=== PATIENT | male | born 1980 | race Caucasian/White ===

== ENCOUNTER → 2020-11-02 | Emergency (ER) | payer MEDICAID ==
[~2020-11-02] VITALS: Ht 175.3 cm; Wt 127.3 kg
[~2020-11-02] MED LIST: FENO160T30 PO; GABA300C PO; LISI10TA27 PO; ONDA4TAB59 PO; ONDA4TAB6 PO; PANT40TA54 PO; PIOG30TA72 PO; SUCR1ORA2 PO; aspirin 81mg tab.chew PO ONE
[2020-11-02 15:08] LABS: BASOPHILS # (AUTO) 0.1 X10'3 (0-0.2); BASOPHILS % (AUTO) 0.6 % (0-1); EOSINOPHILS # (AUTO) 0.3 X10'3 (0-0.9); EOSINOPHILS % (AUTO) 3.7 % (0-6); HEMATOCRIT 47.3 % (42.0-52.0); HEMOGLOBIN 16.3 g/dl (14.0-17.9); LYMPHOCYTES # (AUTO) 1.8 X10'3 (1.1-4.8); LYMPHOCYTES % (AUTO) 20.6 % (21-51); MEAN CORPUSCULAR HEMOGLOBIN 33.2 PG (27.0-31.0); MEAN CORPUSCULAR HGB CONC 34.4 g/dL (33.0-36.5); MEAN CORPUSCULAR VOLUME 96.7 FL (78-98); MONOCYTES # (AUTO) 0.7 X10'3 (0-0.9); MONOCYTES % (AUTO) 7.3 % (2-12); NEUTROPHILS # (AUTO) 6.1 X10'3 (1.8-7.7); NEUTROPHILS % (AUTO) 67.8 % (42-75); PLATELET COUNT 276 X10'3 (140-440); RED BLOOD COUNT 4.89 X10'6 (4.70-6.10); WHITE BLOOD COUNT 8.9 X10'3 (4.5-11.0)
[2020-11-02 15:19] LABS: ALANINE AMINOTRANSFERASE 54 U/L (12-78); ALKALINE PHOSPHATASE 52 IU/L (46-116); ANION GAP 9 (8-16); ASPARTATE AMINO TRANSFERASE 33 U/L (10-37); BILIRUBIN,TOTAL 0.6 MG/DL (0.1-1.0); BLOOD UREA NITROGEN 16 MG/DL (7-18); CALCIUM 9.3 MG/DL (8.5-10.1); CHLORIDE 101 MMOL/L (99-107); GLUCOSE 118 MG/DL (70-104); SODIUM 139 MMOL/L (135-145); eGFR 82 ML/MIN
[2020-11-02 15:21] LABS: PARTIAL THROMBOPLASTIN TIME 30 SECONDS (22-32)
[2020-11-02 15:27] LABS: MAGNESIUM 1.6 MG/DL (1.5-2.4)
--- NOTE | 2020-11-02 16:51 | NUR ---
Dr. Woody at bedside.
[2020-11-02 17:05] VITALS: BP 161/78
== END | disposition home or self-care (01) ==
LOC: ER 13:30
DX: M79.602 Pain in left arm (principal); F17.200 Nicotine dependence, unspecified, uncomplicated; G56.22 Lesion of ulnar nerve, left upper limb; E11.9 Type 2 diabetes mellitus without complications; I10 Essential (primary) hypertension; E78.00 Pure hypercholesterolemia, unspecified; F41.9 Anxiety disorder, unspecified; G47.30 Sleep apnea, unspecified; Z72.89 Other problems related to lifestyle; Z90.89 Acquired absence of other organs; Z79.899 Other long term (current) drug therapy
CPT/HCPCS: 36415; 71045; 80053; 83735; 83880; 84484; 85025; 85610; 85730; 93005; 99285

== ENCOUNTER 2021-11-19 13:06 | Emergency (ER) | payer MEDICAID ==
[~2021-11-19] VITALS: Ht 175.3 cm; Wt 111.4 kg
[~2021-11-19 13:06] MED LIST changes: -ONDA4TAB59 PO; -ONDA4TAB6 PO; -SUCR1ORA2 PO; -aspirin 81mg tab.chew PO ONE
[2021-11-19] MEDS ORDERED: LORazepam 1 MG tablet PO ONE (14:45)
[2021-11-19] MEDS ORDERED: lisinopril 10 MG tablet PO ONE (14:45)
[2021-11-19 15:07] LABS: BASOPHILS % (AUTO) 0.5 % (0-1); EOSINOPHILS % (AUTO) 0.5 % (0-6); HEMATOCRIT 45.4 % (42.0-52.0); HEMOGLOBIN 15.7 g/dl (14.0-17.9); LYMPHOCYTES % (AUTO) 11.2 % (21-51); MEAN CORPUSCULAR HEMOGLOBIN 32.6 PG (27.0-31.0); MEAN CORPUSCULAR HGB CONC 34.7 g/dL (33.0-36.5); MEAN CORPUSCULAR VOLUME 94.1 FL (78-98); MEAN PLATELET VOLUME 6.6 FL (7.4-10.4); MONOCYTES # (AUTO) 0.7 X10'3 (0-0.9); MONOCYTES % (AUTO) 7.6 % (2-12); NEUTROPHILS # (AUTO) 7.3 X10'3 (1.8-7.7); NEUTROPHILS % (AUTO) 80.2 % (42-75); PLATELET COUNT 348 X10'3 (140-440); RED BLOOD COUNT 4.82 X10'6 (4.70-6.10); RED CELL DISTRIBUTION WIDTH 13.2 % (11.5-14.5)
[2021-11-19 15:26] LABS: ALANINE AMINOTRANSFERASE 44 U/L (12-78); ALBUMIN 4.1 G/DL (3.4-5.0); ALBUMIN/GLOBULIN RATIO 1.1 (1.1-1.5); ALKALINE PHOSPHATASE 56 IU/L (46-116); ANION GAP 12 (8-16); ASPARTATE AMINO TRANSFERASE 27 U/L (10-37); BILIRUBIN,TOTAL 0.8 MG/DL (0.1-1.0); BLOOD UREA NITROGEN 11 MG/DL (7-18); BUN/CREATININE RATIO 13.9 (5.4-32.0); CALCIUM 8.6 MG/DL (8.5-10.1); CHLORIDE 97 MMOL/L (99-107); CREATININE 0.79 MG/DL (0.60-1.10); GLUCOSE 145 MG/DL (70-104); POTASSIUM 3.6 MMOL/L (3.5-5.1); SODIUM 134 MMOL/L (135-145); TOTAL PROTEIN 7.8 G/DL (6.4-8.2); eGFR > 90 ML/MIN
[2021-11-19] MEDS ORDERED: normal saline 1000ML IV soln IVB ONE (17:00)
[2021-11-19 19:23] VITALS: BP 134/82
== END 2021-11-19 19:20 | disposition home or self-care (01) ==
LOC: ER 13:09
DX: F10.920 Alcohol use, unspecified with intoxication, uncomplicated (principal); E86.0 Dehydration; I10 Essential (primary) hypertension; E11.9 Type 2 diabetes mellitus without complications; Z98.890 Other specified postprocedural states
CPT/HCPCS: 36415; 71045; 80053; 83880; 84484; 85025; 93005; 96360; 99285; J7030

== ENCOUNTER 2022-02-18 14:43 | Emergency (ER) | payer MEDICAID ==
[~2022-02-18] VITALS: Ht 175.3 cm; Wt 109.1 kg
[2022-02-18 15:34] LABS: ALANINE AMINOTRANSFERASE 57 U/L (12-78); ALBUMIN/GLOBULIN RATIO 1.1 (1.1-1.5); ALKALINE PHOSPHATASE 48 IU/L (46-116); ANION GAP 15 (8-16); ASPARTATE AMINO TRANSFERASE 43 U/L (10-37); BILIRUBIN,TOTAL 0.5 MG/DL (0.1-1.0); BLOOD UREA NITROGEN 13 MG/DL (7-18); BUN/CREATININE RATIO 17.3 (5.4-32.0); CALCIUM 8.4 MG/DL (8.5-10.1); CHLORIDE 96 MMOL/L (99-107); CREATININE 0.75 MG/DL (0.60-1.10); GLUCOSE 160 MG/DL (70-104); LIPASE 88 U/L (73-393); POTASSIUM 3.4 MMOL/L (3.5-5.1); SODIUM 135 MMOL/L (135-145); TOTAL CARBON DIOXIDE 24.1 MMOL/L (24-32); TOTAL PROTEIN 7.6 G/DL (6.4-8.2); eGFR > 90 ML/MIN
[2022-02-18 15:44] LABS: BASOPHILS % (AUTO) 0.7 % (0-1); EOSINOPHILS # (AUTO) 0.1 X10'3 (0-0.9); EOSINOPHILS % (AUTO) 1.9 % (0-6); HEMATOCRIT 46.1 % (42.0-52.0); HEMOGLOBIN 15.9 g/dl (14.0-17.9); LYMPHOCYTES # (AUTO) 1.3 X10'3 (1.1-4.8); LYMPHOCYTES % (AUTO) 24.1 % (21-51); MEAN CORPUSCULAR HEMOGLOBIN 32.8 PG (27.0-31.0); MEAN CORPUSCULAR HGB CONC 34.4 g/dL (33.0-36.5); MEAN CORPUSCULAR VOLUME 95.2 FL (78-98); MEAN PLATELET VOLUME 6.5 FL (7.4-10.4); MONOCYTES # (AUTO) 0.4 X10'3 (0-0.9); MONOCYTES % (AUTO) 6.7 % (2-12); NEUTROPHILS # (AUTO) 3.7 X10'3 (1.8-7.7); NEUTROPHILS % (AUTO) 66.6 % (42-75); PLATELET COUNT 285 X10'3 (140-440); RED BLOOD COUNT 4.85 X10'6 (4.70-6.10); RED CELL DISTRIBUTION WIDTH 13.3 % (11.5-14.5); WHITE BLOOD COUNT 5.5 X10'3 (4.5-11.0)
[2022-02-18 15:53] LABS: CLARITY,URINE CLEAR (Clear); COLOR,URINE YELLOW (Yellow); GLUCOSE, URINE NEGATIVE (Neg); KETONES,URINE NEGATIVE (Neg); LEUKOCYTE ESTERASE ,URINE NEGATIVE (Neg); NITRITES, URINE NEGATIVE (Neg); OCCULT BLOOD,URINE SMALL (Neg); PH,URINE >=9.0 (4.8-8.0); PROTEIN,URINE 100 mg/dl (Neg); UROBILINOGEN,URINE 0.2 E.U/dL (0.2-1.0)
[2022-02-18 16:01] LABS: UA COLLECTION TYPE CLN CATCH MIDSTREAM
[2022-02-18 16:02] LABS: WBC,URINE 0-4 /HPF (0-4)
[2022-02-18 16:03] LABS: BACTERIA,URINE NONE SEEN /HPF (Neg)
[2022-02-18 16:04] LABS: MUCUS STRANDS NONE SEEN /LPF (Neg); SQUAMOUS EPITHELIAL CELL,UR NONE SEEN /LPF (FEW)
[2022-02-18] MEDS ORDERED: mag hydrox/Alum hydrox/simeth 30ml oral suspension PO ONE (22:15)
[2022-02-18] MEDS ORDERED: ondansetron/PF 4mg/2ml inj IV ONE (22:15)
[2022-02-18] MEDS ORDERED: normal saline 1000ML IV soln IVB ONE (22:15)
[2022-02-18] MEDS ORDERED: sucralfate 1 gm tablet PO ONE (22:15)
[2022-02-18] MEDS ORDERED: LORazepam 2 mg/ml vial IV ONE (22:15)
[2022-02-18] MEDS ORDERED: cloNIDine 0.1 mg tablet PO ONE (22:15)
[2022-02-18] MEDS ORDERED: LIDOcaine Viscous 15ml cup MM ONE (22:15)
[2022-02-19 01:28] VITALS: BP 125/57
[2022-02-19] MEDS ORDERED: GABA-534 PO (02:15)
[2022-02-19] MEDS ORDERED: SUCR1TAB34 PO (02:15)
[2022-02-19] MEDS ORDERED: sucralfate 1 gm tablet PO ONE (02:15)
[2022-02-19] MEDS ORDERED: mag hydrox/Alum hydrox/simeth 30ml oral suspension PO ONE (02:15)
[2022-02-19] MEDS ORDERED: ONDA4TAB12 PO (02:15)
[2022-02-19] MEDS ORDERED: LIDOcaine Viscous 15ml cup MM ONE (02:15)
== END 2022-02-19 02:38 | disposition home or self-care (01) ==
LOC: ER 14:44
DX: K29.20 Alcoholic gastritis without bleeding (principal); F10.239 Alcohol dependence with withdrawal, unspecified; E78.00 Pure hypercholesterolemia, unspecified; I10 Essential (primary) hypertension; E11.9 Type 2 diabetes mellitus without complications; F41.9 Anxiety disorder, unspecified; F17.200 Nicotine dependence, unspecified, uncomplicated; Z79.899 Other long term (current) drug therapy
CPT/HCPCS: 36415; 80053; 81001; 83690; 84484; 85025; 93005; 96361; 96374; 96375; 99285; J2060; J2405; J7030

== ENCOUNTER 2022-03-05 14:39 | Emergency (ER) | payer MEDICAID ==
[~2022-03-05] VITALS: Ht 175.3 cm; Wt 109.1 kg
[~2022-03-05 14:39] MED LIST changes: +GABA-534 PO; +ONDA4TAB12 PO; +SUCR1TAB34 PO
--- NOTE | 2022-03-05 15:03 | NUR ---
Met with patient in regards to alcohol use. Patient came in for alcohol withdrawal. Patient is waiting for [facility] to have a bed available. Spoke with Beto about patient. I will follow up with patient and help assist however I can.
[2022-03-05] MEDS ORDERED: folic acid 1mg/0.2ml inj IV ONE (16:00)
[2022-03-05] MEDS ORDERED: LORazepam 2 mg/ml vial IV ONE (16:00)
[2022-03-05] MEDS ORDERED: normal saline 1000ML IV soln IVB ONE (16:00)
[2022-03-05] MEDS ORDERED: thiamine 100mg/ml 2ml inj. IV ONE (16:00)
[2022-03-05 19:20] LABS: BASOPHILS # (AUTO) 0.1 X10'3 (0-0.2); EOSINOPHILS # (AUTO) 0.2 X10'3 (0-0.9); EOSINOPHILS % (AUTO) 1.9 % (0-6); HEMOGLOBIN 15.8 g/dl (14.0-17.9); LYMPHOCYTES # (AUTO) 1.7 X10'3 (1.1-4.8); MONOCYTES # (AUTO) 0.5 X10'3 (0-0.9)
[2022-03-05 19:22] LABS: BASOPHILS % (AUTO) 0.6 % (0-1); HEMATOCRIT 44.9 % (42.0-52.0); LYMPHOCYTES % (AUTO) 18.2 % (21-51); MEAN CORPUSCULAR HEMOGLOBIN 33.3 PG (27.0-31.0); MEAN CORPUSCULAR HGB CONC 35.3 g/dL (33.0-36.5); MEAN CORPUSCULAR VOLUME 94.5 FL (78-98); MEAN PLATELET VOLUME 6.7 FL (7.4-10.4); MONOCYTES % (AUTO) 5.4 % (2-12); NEUTROPHILS % (AUTO) 73.9 % (42-75); PLATELET COUNT 345 X10'3 (140-440); RED BLOOD COUNT 4.75 X10'6 (4.70-6.10); RED CELL DISTRIBUTION WIDTH 13.6 % (11.5-14.5); WHITE BLOOD COUNT 9.5 X10'3 (4.5-11.0)
[2022-03-05 19:31] LABS: ALANINE AMINOTRANSFERASE 30 U/L (12-78); ALBUMIN 4.1 G/DL (3.4-5.0); ALBUMIN/GLOBULIN RATIO 1.1 (1.1-1.5); ALKALINE PHOSPHATASE 46 IU/L (46-116); ANION GAP 12 (8-16); ASPARTATE AMINO TRANSFERASE 20 U/L (10-37); BILIRUBIN,TOTAL 0.6 MG/DL (0.1-1.0); BLOOD UREA NITROGEN 11 MG/DL (7-18); BUN/CREATININE RATIO 13.3 (5.4-32.0); CALCIUM 9.6 MG/DL (8.5-10.1); CHLORIDE 100 MMOL/L (99-107); CREATININE 0.83 MG/DL (0.60-1.10); ETHANOL < 0.010 GM/DL (0.0-0.010); GLUCOSE 115 MG/DL (70-104); POTASSIUM 3.8 MMOL/L (3.5-5.1); SODIUM 139 MMOL/L (135-145); TOTAL CARBON DIOXIDE 27.4 MMOL/L (24-32); TOTAL PROTEIN 7.9 G/DL (6.4-8.2); eGFR > 90 ML/MIN
--- NOTE | 2022-03-05 20:20 | NUR ---
MIKEY SANTO INFORMED THAT THE PT HAS DRIVEN HERE, AND REFUSED ATIVAN BECAUSE HE IS DRIVING HOME
[2022-03-05] MEDS ORDERED: ONDA4TAB12 PO (20:41)
[2022-03-05] MEDS ORDERED: LORA-269 PO (20:41)
[2022-03-05 21:40] VITALS: BP 152/86
[2022-03-06 00:36] LABS: TOTAL CELLS COUNTED 100
[2022-03-06 00:37] LABS: PLATELET ESTIMATE NORMAL
== END 2022-03-05 21:43 | disposition home or self-care (01) ==
LOC: ER 14:40
DX: F10.239 Alcohol dependence with withdrawal, unspecified (principal); R10.13 Epigastric pain; F41.9 Anxiety disorder, unspecified; R00.2 Palpitations; E78.00 Pure hypercholesterolemia, unspecified; I10 Essential (primary) hypertension; E11.9 Type 2 diabetes mellitus without complications; F17.200 Nicotine dependence, unspecified, uncomplicated; Z72.89 Other problems related to lifestyle; Z90.89 Acquired absence of other organs; Z79.899 Other long term (current) drug therapy; Y90.0 Blood alcohol level of less than 20 mg/100 ml
CPT/HCPCS: 36415; 71045; 80053; 80320; 82948; 85007; 85025; 93005; 96361; 96374; 96375; 99285; J3411; J3490; J7030

== ENCOUNTER 2022-03-09 18:41 | Emergency (ER) | payer MEDICAID ==
[~2022-03-09] VITALS: Ht 175.3 cm; Wt 107.5 kg
[~2022-03-09 18:41] MED LIST changes: +LORA-269 PO
[2022-03-10 06:48] VITALS: BP 174/91
--- NOTE | 2022-03-10 07:15 | NUR ---
Pt seen by Dr. Barriga.
[2022-03-10] MEDS ORDERED: chlordiazePOXIDE 25mg capsule PO ONE (07:20)
[2022-03-10] MEDS ORDERED: CHLO25CA10 PO (07:21)
[2022-03-10] MEDS ORDERED: ONDA4TAB12 PO (07:21)
--- NOTE | 2022-03-10 07:30 | NUR ---
Pt given and understands d/c instructions. Ambulatory with a steady gait.
== END 2022-03-10 07:53 | disposition home or self-care (01) ==
LOC: ER 18:42
DX: F10.129 Alcohol abuse with intoxication, unspecified (principal); E78.00 Pure hypercholesterolemia, unspecified; I10 Essential (primary) hypertension; E11.9 Type 2 diabetes mellitus without complications; F41.9 Anxiety disorder, unspecified; Z90.89 Acquired absence of other organs; Z72.89 Other problems related to lifestyle; Z79.899 Other long term (current) drug therapy; Y90.9 Presence of alcohol in blood, level not specified
CPT/HCPCS: 93005; 99283

== ENCOUNTER 2022-03-15 19:58 | Emergency (ER) | payer MEDICAID ==
[~2022-03-15] VITALS: Ht 175.3 cm; Wt 109.1 kg
[~2022-03-15 19:58] MED LIST changes: +CHLO25CA10 PO
[2022-03-15] MEDS ORDERED: normal saline 1000ML IV soln IVB ONE (21:15)
[2022-03-15] MEDS ORDERED: magnesium 2GM in 50ml NS 50 ML IV ONE (21:15)
[2022-03-15] MEDS ORDERED: LORazepam 2 mg/ml vial IV ONE (21:15)
[2022-03-15 21:46] LABS: BASOPHILS # (AUTO) 0.1 X10'3 (0-0.2); BASOPHILS % (AUTO) 1.8 % (0-1); EOSINOPHILS # (AUTO) 0.2 X10'3 (0-0.9); EOSINOPHILS % (AUTO) 3.7 % (0-6); HEMATOCRIT 44.6 % (42.0-52.0); HEMOGLOBIN 15.5 g/dl (14.0-17.9); LYMPHOCYTES # (AUTO) 1.6 X10'3 (1.1-4.8); LYMPHOCYTES % (AUTO) 33.4 % (21-51); MEAN CORPUSCULAR HEMOGLOBIN 32.5 PG (27.0-31.0); MEAN CORPUSCULAR HGB CONC 34.7 g/dL (33.0-36.5); MEAN CORPUSCULAR VOLUME 93.8 FL (78-98); MEAN PLATELET VOLUME 6.3 FL (7.4-10.4); MONOCYTES # (AUTO) 0.4 X10'3 (0-0.9); MONOCYTES % (AUTO) 8.8 % (2-12); NEUTROPHILS # (AUTO) 2.5 X10'3 (1.8-7.7); NEUTROPHILS % (AUTO) 52.3 % (42-75); PLATELET COUNT 239 X10'3 (140-440); RED BLOOD COUNT 4.75 X10'6 (4.70-6.10); RED CELL DISTRIBUTION WIDTH 13.3 % (11.5-14.5); WHITE BLOOD COUNT 4.8 X10'3 (4.5-11.0)
[2022-03-15 22:02] LABS: ALANINE AMINOTRANSFERASE 43 U/L (12-78); ALBUMIN 3.8 G/DL (3.4-5.0); ALKALINE PHOSPHATASE 54 IU/L (46-116); ANION GAP 9 (8-16); ASPARTATE AMINO TRANSFERASE 37 U/L (10-37); BILIRUBIN,TOTAL 0.3 MG/DL (0.1-1.0); BLOOD UREA NITROGEN 8 MG/DL (7-18); BUN/CREATININE RATIO 10.3 (5.4-32.0); CALCIUM 8.8 MG/DL (8.5-10.1); CHLORIDE 103 MMOL/L (99-107); CREATININE 0.78 MG/DL (0.60-1.10); GLUCOSE 138 MG/DL (70-104); POTASSIUM 3.9 MMOL/L (3.5-5.1); SODIUM 143 MMOL/L (135-145); TOTAL CARBON DIOXIDE 30.6 MMOL/L (24-32); TOTAL PROTEIN 7.6 G/DL (6.4-8.2); eGFR > 90 ML/MIN
[2022-03-15] MEDS ORDERED: CHLO25CA10 PO (22:41)
[2022-03-15 22:56] VITALS: BP 138/86
== END 2022-03-16 00:26 | disposition home or self-care (01) ==
LOC: ER 19:58
DX: F10.10 Alcohol abuse, uncomplicated (principal); I10 Essential (primary) hypertension; E11.9 Type 2 diabetes mellitus without complications; F41.9 Anxiety disorder, unspecified; E78.00 Pure hypercholesterolemia, unspecified; F17.210 Nicotine dependence, cigarettes, uncomplicated; Z79.899 Other long term (current) drug therapy; Z90.49 Acquired absence of other specified parts of digestive tract; Y90.9 Presence of alcohol in blood, level not specified
CPT/HCPCS: 36415; 80053; 85025; 96365; 96375; 99284; J2060; J3475; J7030

== ENCOUNTER 2022-05-03 01:46 | Emergency (ER) | payer MEDICAID ==
[~2022-05-03] VITALS: Ht 175.3 cm; Wt 111.4 kg
[2022-05-03] MEDS ORDERED: normal saline 1000ML IV soln IVB ONE ×2 (02:05→03:15)
[2022-05-03] MEDS ORDERED: thiamine 100mg/ml 2ml inj. IV ONE (02:05)
[2022-05-03 02:27] LABS: BASOPHILS % (AUTO) 0.4 % (0-1); EOSINOPHILS # (AUTO) 0.1 X10'3 (0-0.9); EOSINOPHILS % (AUTO) 0.7 % (0-6); HEMATOCRIT 43.9 % (42.0-52.0); HEMOGLOBIN 15.2 g/dl (14.0-17.9); LYMPHOCYTES # (AUTO) 2.5 X10'3 (1.1-4.8); LYMPHOCYTES % (AUTO) 29.5 % (21-51); MEAN CORPUSCULAR HEMOGLOBIN 32.4 PG (27.0-31.0); MEAN CORPUSCULAR HGB CONC 34.6 g/dL (33.0-36.5); MEAN CORPUSCULAR VOLUME 93.8 FL (78-98); MEAN PLATELET VOLUME 6.9 FL (7.4-10.4); MONOCYTES # (AUTO) 0.5 X10'3 (0-0.9); MONOCYTES % (AUTO) 6.3 % (2-12); NEUTROPHILS # (AUTO) 5.3 X10'3 (1.8-7.7); NEUTROPHILS % (AUTO) 63.1 % (42-75); PLATELET COUNT 382 X10'3 (140-440); RED BLOOD COUNT 4.68 X10'6 (4.70-6.10); RED CELL DISTRIBUTION WIDTH 13.1 % (11.5-14.5); WHITE BLOOD COUNT 8.5 X10'3 (4.5-11.0)
[2022-05-03 03:05] LABS: ALANINE AMINOTRANSFERASE 36 U/L (12-78); ALBUMIN 3.8 G/DL (3.4-5.0); ALBUMIN/GLOBULIN RATIO 1.2 (1.1-1.5); ALKALINE PHOSPHATASE 48 IU/L (46-116); ANION GAP 22 (8-16); ASPARTATE AMINO TRANSFERASE 30 U/L (10-37); BILIRUBIN,TOTAL 0.8 MG/DL (0.1-1.0); BLOOD UREA NITROGEN 13 MG/DL (7-18); BUN/CREATININE RATIO 16.9 (5.4-32.0); CALCIUM 8.4 MG/DL (8.5-10.1); CHLORIDE 96 MMOL/L (99-107); CREATININE 0.77 MG/DL (0.60-1.10); ETHANOL 0.204 GM/DL (0.0-0.010); GLUCOSE 143 MG/DL (70-104); LIPASE 65 U/L (73-393); POTASSIUM 3.6 MMOL/L (3.5-5.1); SODIUM 137 MMOL/L (135-145); TOTAL CARBON DIOXIDE 18.9 MMOL/L (24-32); eGFR > 90 ML/MIN
[2022-05-03] MEDS ORDERED: famotidine/PF 10 mg/ml inj IV ONE (03:15)
[2022-05-03] MEDS ORDERED: dextrose 5%-1/2 normal saline 1,000 ML IV ONE (03:20)
[2022-05-03] MEDS ORDERED: iohexol 300mg/ml 100ml inj. ONE (03:26)
[2022-05-03 04:09] LABS: URINE AMPHETAMINE SCREEN NEGATIVE (Neg); URINE BARBITUATE SCREEN NEGATIVE (Neg); URINE BENZODIAZEPINES SCREEN NEGATIVE (Neg); URINE CANNABINOID SCREEN NEGATIVE (Neg); URINE COCAINE SCREEN NEGATIVE (Neg); URINE METHADONE SCREEN NEGATIVE (Neg); URINE OPIATE SCREEN NEGATIVE (Neg); URINE PHENCYCLIDINE SCREEN NEGATIVE (Neg)
[2022-05-03 05:12] LABS: ANION GAP 17 (8-16); BLOOD UREA NITROGEN 11 MG/DL (7-18); BUN/CREATININE RATIO 19.3 (5.4-32.0); CALCIUM 6.6 MG/DL (8.5-10.1); CHLORIDE 102 MMOL/L (99-107); CREATININE 0.57 MG/DL (0.60-1.10); GLUCOSE 114 MG/DL (70-104); POTASSIUM 3.3 MMOL/L (3.5-5.1); SODIUM 138 MMOL/L (135-145); TOTAL CARBON DIOXIDE 19.5 MMOL/L (24-32); eGFR > 90 ML/MIN
[2022-05-03] MEDS ORDERED: CALCIUM GLUC 1gm/50ml NACL,iso 50 ML IV ONE (05:35)
[2022-05-03] MEDS ORDERED: ondansetron 4mg rapidly disintigrating tab PO ONE (06:45)
[2022-05-03] MEDS ORDERED: pantoprazole 40mg IV 80 MG in normal saline 100ml IV soln 100 ML IV ONE (07:55)
[2022-05-03] MEDS ORDERED: LORazepam 2 mg/ml vial IV ONE ×2 (07:55→16:45)
[2022-05-03] MEDS ORDERED: mag hydrox/Alum hydrox/simeth 30ml oral suspension PO ONE (07:55)
[2022-05-03] MEDS: pantoprazole 40MG/NS 100ML BAG 100 ML IV SCH ×2 (08:18→08:39)
[2022-05-03 10:14] LABS: ALBUMIN 3.4 G/DL (3.4-5.0); ANION GAP 17 (8-16); BLOOD UREA NITROGEN 9 MG/DL (7-18); BUN/CREATININE RATIO 14.5 (5.4-32.0); CALCIUM 8.1 MG/DL (8.5-10.1); CHLORIDE 99 MMOL/L (99-107); CREATININE 0.62 MG/DL (0.60-1.10); ETHANOL 0.046 GM/DL (0.0-0.010); GLUCOSE 131 MG/DL (70-104); POTASSIUM 3.9 MMOL/L (3.5-5.1); SODIUM 137 MMOL/L (135-145); TOTAL CARBON DIOXIDE 20.7 MMOL/L (24-32); eGFR > 90 ML/MIN
[2022-05-03] MEDS ORDERED: sucralfate 1 gm tablet PO ONE (13:45)
[2022-05-03] MEDS ORDERED: morphine 2 MG/ML inj. syringe IV ONE (13:45)
[2022-05-03 14:14] LABS: ALBUMIN 3.7 G/DL (3.4-5.0); ANION GAP 12 (8-16); BLOOD UREA NITROGEN 9 MG/DL (7-18); BUN/CREATININE RATIO 12.2 (5.4-32.0); CALCIUM 8.3 MG/DL (8.5-10.1); CHLORIDE 99 MMOL/L (99-107); CREATININE 0.74 MG/DL (0.60-1.10); ETHANOL < 0.010 GM/DL (0.0-0.010); GLUCOSE 154 MG/DL (70-104); POTASSIUM 3.9 MMOL/L (3.5-5.1); SODIUM 135 MMOL/L (135-145); TOTAL CARBON DIOXIDE 24.5 MMOL/L (24-32); eGFR > 90 ML/MIN
[2022-05-03 15:10] VITALS: BP 124/40
--- NOTE | 2022-05-03 15:35 | NUR ---
Orthostatic vitals were performed with patient. Heart rate maximum was 110 upon standing. Blood pressure dropped from 138/67 to 124/40.
[2022-05-04] MEDS ORDERED: GABA300C PO (11:14)
== END 2022-05-03 17:54 | disposition home or self-care (01) ==
LOC: ER 01:47
DX: F10.10 Alcohol abuse, uncomplicated (principal); E87.29 Other acidosis; E11.9 Type 2 diabetes mellitus without complications; E78.00 Pure hypercholesterolemia, unspecified; I10 Essential (primary) hypertension; F41.9 Anxiety disorder, unspecified; Z91.14 Patient's other noncompliance with medication regimen; Z90.89 Acquired absence of other organs; Z72.89 Other problems related to lifestyle; Z79.899 Other long term (current) drug therapy
CPT/HCPCS: 36415; 74177; 80048; 80053; 80305; 80320; 83690; 85025; 96361; 96365; 96367; 96375; 96376; 99285; C9113; J0610; J2060; J2270; J3411; J3490; J7030; J7042; Q9967

== ENCOUNTER 2022-05-04 10:53 | Emergency (ER) | payer MEDICAID ==
[~2022-05-04] VITALS: Ht 175.3 cm; Wt 111.0 kg
[2022-05-04 10:57] VITALS: BP 137/95
[2022-05-04] MEDS ORDERED: GABA300C PO (11:14)
== END 2022-05-04 11:28 | disposition home or self-care (01) ==
LOC: ER 10:53
DX: F10.239 Alcohol dependence with withdrawal, unspecified (principal); E78.00 Pure hypercholesterolemia, unspecified; I10 Essential (primary) hypertension; E11.9 Type 2 diabetes mellitus without complications; F41.9 Anxiety disorder, unspecified; Z90.89 Acquired absence of other organs; Z72.89 Other problems related to lifestyle; Z79.899 Other long term (current) drug therapy; Y90.9 Presence of alcohol in blood, level not specified
CPT/HCPCS: 99283

== ENCOUNTER 2022-07-22 12:51 | Emergency (ER) | payer MEDICAID ==
[~2022-07-22] VITALS: Ht 175.3 cm; Wt 109.1 kg
--- NOTE | 2022-07-22 13:35 | NUR ---
Met with patient in regards to alcohol use and to see if patient was interested in resources for treatment options. Patient is interested in resources. I gave patient [facility] number to call and get that process started. I talked to patient about medication to help with cravings. I gave him a card for [facility] and my card to call me if he has any questions.
[2022-07-22 15:45] VITALS: BP 144/91
[2022-07-22] MEDS ORDERED: chlordiazePOXIDE 25mg capsule PO ONE ×2 (17:50→20:45)
[2022-07-22] MEDS ORDERED: ondansetron/PF 4mg/2ml inj IV ONE (17:50)
[2022-07-22] MEDS ORDERED: ringers solution, lactated 1000ml IV soln IV ONE (17:50)
[2022-07-22] MEDS ORDERED: morphine 4 MG/ML inj SYRINge IV PRN (17:50)
[2022-07-22] MEDS ORDERED: diazepam inj 5 MG/ML inj. IV ONE (17:50)
[2022-07-22 18:39] LABS: BASOPHILS % (AUTO) 0.6 % (0-1); EOSINOPHILS # (AUTO) 0.1 X10'3 (0-0.9); EOSINOPHILS % (AUTO) 0.8 % (0-6); HEMATOCRIT 47.3 % (42.0-52.0); HEMOGLOBIN 16.3 g/dl (14.0-17.9); LYMPHOCYTES # (AUTO) 1.2 X10'3 (1.1-4.8); LYMPHOCYTES % (AUTO) 18.5 % (21-51); MEAN CORPUSCULAR HEMOGLOBIN 30.7 PG (27.0-31.0); MEAN CORPUSCULAR HGB CONC 34.5 g/dL (33.0-36.5); MEAN CORPUSCULAR VOLUME 88.9 FL (78-98); MEAN PLATELET VOLUME 6.9 FL (7.4-10.4); MONOCYTES # (AUTO) 0.5 X10'3 (0-0.9); MONOCYTES % (AUTO) 7.7 % (2-12); NEUTROPHILS # (AUTO) 4.9 X10'3 (1.8-7.7); NEUTROPHILS % (AUTO) 72.4 % (42-75); PLATELET COUNT 335 X10'3 (140-440); RED BLOOD COUNT 5.32 X10'6 (4.70-6.10); WHITE BLOOD COUNT 6.7 X10'3 (4.5-11.0)
[2022-07-22 18:53] LABS: ALANINE AMINOTRANSFERASE 58 U/L (12-78); ALBUMIN 3.5 G/DL (3.4-5.0); ALBUMIN/GLOBULIN RATIO 1.1 (1.1-1.5); ALKALINE PHOSPHATASE 72 IU/L (46-116); ANION GAP 12 (8-16); ASPARTATE AMINO TRANSFERASE 36 U/L (10-37); BILIRUBIN,TOTAL 1.6 MG/DL (0.1-1.0); BLOOD UREA NITROGEN 12 MG/DL (7-18); BUN/CREATININE RATIO 16.4 (5.4-32.0); CHLORIDE 100 MMOL/L (99-107); CREATININE 0.73 MG/DL (0.60-1.10); GLUCOSE 127 MG/DL (70-104); LIPASE < 50 U/L (73-393); POTASSIUM 3.3 MMOL/L (3.5-5.1); SODIUM 137 MMOL/L (135-145); TOTAL CARBON DIOXIDE 25.4 MMOL/L (24-32); TOTAL PROTEIN 6.8 G/DL (6.4-8.2); eGFR > 90 ML/MIN
--- NOTE | 2022-07-22 19:53 | NUR ---
PT CHANGED INTO GOWN AWAITING EXAM FROM ER nausea RESOLVED PAIN 07/25
[2022-07-22] MEDS ORDERED: LIDOcaine Viscous 15ml cup MM ONE (19:55)
[2022-07-22] MEDS ORDERED: sucralfate 1 gm tablet PO ONE (19:55)
[2022-07-22] MEDS ORDERED: mag hydrox/Alum hydrox/simeth 30ml oral suspension PO ONE (19:55)
[2022-07-22] MEDS ORDERED: CHLO25CA10 PO (20:13)
[2022-07-22] MEDS ORDERED: GABA-534 PO (20:13)
[2022-07-22] MEDS ORDERED: SUCR1TAB34 PO (20:17)
--- NOTE | 2022-07-22 21:36 | NUR ---
IV DC'D PT BEING DISCHARGED DRESSING APPLIED
== END 2022-07-22 21:38 | disposition home or self-care (01) ==
LOC: ER 12:53
DX: K29.21 Alcoholic gastritis with bleeding (principal); F10.29 Alcohol dependence with unspecified alcohol-induced disorder; K62.5 Hemorrhage of anus and rectum; E78.00 Pure hypercholesterolemia, unspecified; I10 Essential (primary) hypertension; E11.9 Type 2 diabetes mellitus without complications; F41.9 Anxiety disorder, unspecified; F17.200 Nicotine dependence, unspecified, uncomplicated; Z79.899 Other long term (current) drug therapy; Z79.1 Long term (current) use of non-steroidal anti-inflammatories (NSAID); Z79.2 Long term (current) use of antibiotics
CPT/HCPCS: 36415; 80053; 83690; 85025; 96361; 96374; 96375; 99284; J2270; J2405; J3360; J7120; J7030